=== PATIENT | male | born 1995 | race Caucasian/White ===

== ENCOUNTER 2018-05-05 07:12 | Emergency (ER) | payer OTHER ==
--- NOTE | 2018-05-05 07:25 | ED ---
HPI Chest Pain - HPI Summary HPI Summary: This patient is a 22 year old M presenting to [facility] with a chief complaint of CP that began around 0645 this date. The patient states he dropped his friend off at work and as he was driving home he developed left sided inferior CP near the last true ribs. The patient rates the pain 5/10 in severity. As he pulled into his drive way he states he had a syncopal episode and believes he passed out for about a minute. He states he knows this because he related time to the last song he heard playing in his car to the one that was on when he awoke. At the time of regaining consciousness he felt dizzy, disoriented, and diaphoretic but this quickly resolved. Patient denies SOB, palpitations, and nausea. He states the CP has slightly resolved since he has been in the ED. He denies any recent travel or similar episodes. He states he does not smoke, has no relevant medical history, or family history of CAD at his age. - History of Current Complaint Chief Complaint: EDChestPainROMI Time Seen by Provider: 05/05/18 07:23 Hx Obtained From: Patient Onset/Duration: Started Hours Ago, Still Present Timing: Constant Initial Severity: Moderate Current Severity: Mild Pain Intensity: 5 Chest Pain Location: Left Lateral Chest Pain Radiates: No Associated Signs and Symptoms: Positive: Other: - LOC, dizzy, sweaty - Allergy/Home Medications Allergies/Adverse Reactions: Allergies Allergy/AdvReac Type Severity Reaction Status Date / Time No Known Allergies Allergy Verified 05/05/18 07:16 Home Medications: Home Medications Melatonin (NF) 12 mg PO QPM 05/05/18 [History Confirmed 05/05/18] buPROPion HCl [Bupropion HCl ER] 200 mg PO DAILY 05/05/18 [History Confirmed ] lamoTRIgine [Lamotrigine] 200 mg PO DAILY 05/05/18 [History Confirmed 05/05/18] PMH/Surg Hx/FS Hx/Imm Hx Endocrine/Hematology History: Denies: Hx Bone Marrow Disease, Hx Diabetes, Hx Sickle Cell Disease, Hx Thyroid Disease, Hx Coagulopothy Cardiovascular History: Denies: Hx Auto Implanted Cardiovert Defib, Hx Congestive Heart Failure, Hx Deep Vein Thrombosis, Hx Hypercholesterolemia, Hx Hypertension, Hx Myocardial Infarction Respiratory History: Denies: Hx Chronic Obstructive Pulmonary Disease (COPD), Hx Lung Cancer, Hx Pneumonia, Hx Pulmonary Edema GI History: Denies: Hx Gastroesophageal Reflux Disease, Hx Gastrointestinal Bleed Musculoskeletal History: Denies: Hx Congenital Bone Abnormalities Sensory History: Denies: Hx Eye Prosthesis Psychiatric History: Reports: Hx Anxiety, Hx Depression Infectious Disease History: No Infectious Disease History: Denies: Traveled Outside the [place] in Last 30 Days - Family History Known Family History: Positive: Cardiac Disease, Hypertension - Social History Alcohol Use: Occasionally Hx Substance Use: No Substance Use Type: Reports: Marijuana Hx Tobacco Use: No Smoking Status (MU): Never Smoked Tobacco Review of Systems Positive: Skin Diaphoresis Positive: Chest Pain. Negative: Palpitations Negative: Shortness Of Breath Negative: Nausea Neurological: Other - dizzy Positive: Syncope - w/ disoriented All Other Systems Reviewed And Are Negative: Yes Physical Exam - Summary Physical Exam Summary: VITAL SIGNS: Reviewed. GENERAL: Patient is a well-developed and nourished Male who is lying comfortable in the stretcher. Patient is not in any acute respiratory distress. HEAD AND FACE: No signs of trauma. No ecchymosis, hematomas or skull depressions. No sinus tenderness. EYES: PERRLA, EOMI x 2, No injected conjunctiva, no nystagmus. EARS: Hearing grossly intact. Ear canals and tympanic membranes are within normal limits. MOUTH: Oropharynx within normal limits. NECK: Supple, trachea is midline, no adenopathy, no JVD, no carotid bruit, no c- spine tenderness, neck with full ROM. CHEST: Symmetric, no tenderness at palpation LUNGS: Clear to auscultation bilaterally. No wheezing or crackles. CVS: Regular rate and rhythm, S1 and S2 present, no murmurs or gallops appreciated. ABDOMEN: Soft, non-tender. No signs of distention. No rebound no guarding, and no masses palpated. Bowel sounds are normal. EXTREMITIES: FROM in all major joints, no edema, no cyanosis or clubbing. NEURO: Alert and oriented x 3. No acute neurological deficits. Speech is normal and follows commands. SKIN: Dry and warm Triage Information Reviewed: Yes Vital Signs On Initial Exam: Initial Vitals Temp Pulse Resp BP Pulse Ox 96.6 F 83 16 150/85 95 05/05/18 07:15 05/05/18 07:15 05/05/18 07:15 05/05/18 07:15 05/05/18 07:15 Vital Signs Reviewed: Yes Diagnostics - Vital Signs Vital Signs Temp Pulse Resp BP Pulse Ox 05/05/18 07:15 96.6 F 83 16 150/85 95 - Laboratory Result Diagrams: 05/05/18 07:38 05/05/18 07:38 Lab Statement: Any lab studies that have been ordered have been reviewed, and results considered in the medical decision making process. - Radiology CXR Radiology Interpretation Completed By: Radiologist Summary of Radiographic Findings: No radiographic evidence for acute cardiopulmonary abnormality on this. portable chest x-ray. ED physician has reviewed this radiology report. - CT CT head CT Interpretation Completed By: Radiologist Summary of CT Findings: No acute intracranial pathology. ED physician has reviewed this report. - EKG 0730 Cardiac Rate: NL EKG Rhythm: Sinus Rhythm - at 83 BPM Summary of EKG Findings: no ST elevations, early repolarization Chest Pain Course/Dx - Course Assessment/Plan: This patient is a 22 year old M presenting to [facility] with a chief complaint of CP that began around 06 this date. The patient states he dropped his friend off at work and as he was driving home he developed left sided inferior CP near the last true ribs. The patient rates the pain 5/10 in severity. As he pulled into his drive way he states he had a syncopal episode and believes he passed out for about a minute. He states he knows this because he related time to the last song he heard playing in his car to the one that was on when he awoke. At the time of regaining consciousness he felt dizzy, disoriented, and diaphoretic but this quickly resolved. Patient denies SOB, palpitations, and nausea. He states the CP has slightly resolved since he has been in the ED. He denies any recent travel or similar episodes. He states he does not smoke, has no relevant medical history, or family history of CAD at his age. Blood work without any significant abnormality, except for glucose of 123, troponin is 0.00 and d-dimer is less than 200. Therefore have no suspicion for acute coronary syndrome or PE. I believe that the patient developed these atypical chest pain and because of the chest pain patient had a vasovagal syncope. Or you for the patient admission for observation but however he declined. He reports that he is medically on the [employer] therefore he will be discharged home with follow-up with PCP. I discussed all the findings and test results with the patient. Patient was instructed to return to the emergency room immediately if any of the symptoms return or worsens. Plan of care was discussed with the patient and understands and agrees. All questions were answered at patient satisfaction. There were no further complaints or concerns. Lung exam before discharge: CTA B/L. Good air exchange. No wheezing or crackles heard. CVS: S1 and S2 present. No murmurs appreciated. Patient is alert and oriented x 3. Patient is hemodynamically stable. Patient will be discharged home with follow up PCP in the next 2-3 days - Chest Pain Differential Diagnosis/HQI/PQRI: Acute NV, ACS, CHF, Chest Wall, GI Disease, Lower Respiratory Infection - Diagnoses Provider Diagnoses: Vasovagal syncope, Atypical chest pain Discharge - Sign-Out/Discharge Documenting (check all that apply): Patient Departure - Discharge Plan Condition: Stable Disposition: HOME Patient Education Materials: Chest Pain (DC), Syncope (DC) Referrals: [facility] - Dav WAGNER [[facility], APPLICATION, OTHER] - Additional Instructions: Follow up with your primary care physician in 1-3 days. RETURN TO THE EMERGENCY DEPARTMENT FOR CHANGING OR WORSENING SYMPTOMS. - Billing Disposition and Condition Condition: STABLE Disposition: Home - Attestation Statements Document Initiated by [employer]: Yes Documenting Scribe: Rolando Ann Provider For Whom Finesse is Documenting (Include Credential): Walter Mojica MD Scribe Attestation: Rolando Murphy , scribed for Walter Mojica MD on 05/05/18 at 1805. Scribe Documentation Reviewed: Yes Provider Attestation: The documentation as recorded by the Rolando brito accurately reflects the service I personally performed and the decisions made by me, Walter Mojica MD Status of Scribe Document: Viewed
[2018-05-05 07:44] LABS: ABS Basophils 0.1 10^3/ul (0-0.2); ABS Eosinophils 0.2 10^3/ul (0-0.6); ABS Lymphocytes 2.8 10^3/ul (1.0-4.8); ABS Monocytes 0.7 10^3/ul (0-0.8); ABS Neutrophils 3.9 10^3/ul (1.5-7.7); ABS Nucleated RBC 0 10^3/ul; Eosinophil % 3.1 %; Hematocrit 45 % (42-52); Hemoglobin 15.4 g/dl (14.0-18.0); Mean Corpuscular HGB Conc 34 g/dl (31-36); Mean Corpuscular Hemoglobin 30 pg (27-31); Mean Corpuscular Volume 88 fL (80-94); Mean Platelet Volume 7.1 fL (7.4-10.4); Nucleated Red Blood Cells % 0.1; Platelet Count 300 10^3/ul (150-450); Red Blood Count 5.16 10^6/ul (4.00-5.40); Red Cell Distribution Width 13 % (10.5-15); White Blood Count 7.6 10^3/ul (3.5-10.8)
[2018-05-05 08:02] LABS: Albumin 4.2 g/dL (3.2-5.2); Albumin/Globulin Ratio 1.3 (1-3); BUN/Creatinine Ratio 13.4 (8-20); Calcium 9.9 mg/dL (8.6-10.3); EGFR Non-African American 95.9 (>60); Globulin 3.2 g/dL (2-4); Potassium 4.3 mmol/L (3.5-5.0); Total Bilirubin 0.5 mg/dL (0.2-1.0); Total Protein 7.4 g/dL (6.4-8.9)
[2018-05-05 08:30] LABS: TSH (Thyroid Stimulating Horm) 1.81 mcIU/mL (0.34-5.60)
[2018-05-05] MEDS ORDERED: Aspirin 81 mg CHEW TAB* 81 MG TAB.CHEW PO ONE (08:51)
[2018-05-05] MEDS ORDERED: Ketorolac INJ* 60 MG/2 ML VIAL IM ONE (09:47)
[2018-05-05 10:10] VITALS: BP 132/73
== END 2018-05-05 10:10 | disposition home or self-care (01) ==
LOC: ED 07:12
DX: R55 Syncope and collapse (principal); R07.89 Other chest pain; F32.9 Major depressive disorder, single episode, unspecified; Z82.49 Family history of ischemic heart disease and other diseases of the circulatory system
CPT/HCPCS: 36415; 70450; 71045; 80053; 82550; 82553; 83605; 83735; 83880; 84443; 84484; 85025; 85379; 93005; 96372; 99282; A9270-GY; J1885